=== PATIENT | male | born 2000 | race Caucasian/White ===

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

== ENCOUNTER 2020-03-11 07:00 | Outpatient (CLI) | payer OTHER, MEDICAID | END 2020-03-11 23:59 | disposition home or self-care (01) | LOC: LAB.R 07:00 | DX: R63.4 Abnormal weight loss (principal); K92.1 Melena; K59.00 Constipation, unspecified; K50.90 Crohn's disease, unspecified, without complications | CPT/HCPCS: 83993; 87493 ==

== ENCOUNTER 2020-03-11 20:26 | Outpatient (CLI) | payer OTHER, MEDICAID | END 2020-03-11 20:27 | disposition home or self-care (01) | LOC: LAB 20:26 | PROVIDERS: ATTEND Internal Medicine Gastroenterology | DX: R63.4 Abnormal weight loss (principal); K92.1 Melena; K59.00 Constipation, unspecified; K50.90 Crohn's disease, unspecified, without complications ==

== ENCOUNTER 2020-04-04 08:00 | Outpatient (CLI) | payer OTHER, MEDICAID ==
[2020-04-04 13:16] LABS: GLUCOSE, URINE (UA) NEGATIVE (NEGATIVE); KETONES,URINE (UA) 15 mg/dL (NEGATIVE); LEUKOCYTE ESTERASE, URINE NEGATIVE (NEGATIVE); NITRITE,URINE NEGATIVE (NEGATIVE); OCCULT BLOOD,URINE NEGATIVE (NEGATIVE); PROTEIN,URINE NEGATIVE (NEGATIVE); UROBILINOGEN,URINE 0.2 (NORMAL) E.U./dL (NORMAL)
[2020-04-04 13:17] LABS: CLARITY,URINE CLEAR (CLEAR)
[2020-04-04 13:21] LABS: BILIRUBIN,URINE NEGATIVE (NEGATIVE); ICTOTEST,URINE NEGATIVE
== END 2020-04-04 23:59 | disposition home or self-care (01) ==
LOC: LAB.R 08:00
PROVIDERS: ATTEND Internal Medicine Gastroenterology
DX: R63.4 Abnormal weight loss (principal); K92.1 Melena; K59.00 Constipation, unspecified; K50.90 Crohn's disease, unspecified, without complications; F84.0 Autistic disorder
CPT/HCPCS: 81001; 81003

== ENCOUNTER 2021-02-06 12:05 | Emergency (ER) | payer OTHER, MEDICAID ==
[2021-02-06 12:20] VITALS: BP 132/74
[2021-02-06] MEDS ORDERED: MIDAZOLAM 2 MG/2 ML VIAL IM STA (12:34)
--- NOTE | 2021-02-06 12:35 | ED Physician Documentation ---
History of Present Illness - Stated complaint Stated Complaint: G TUBE COMPLICATION - Chief complaint Chief Complaint: General - History obtained from History obtained from: Family (mom) - Additonal information Additional information: 21-year-old gentleman with autism who requires a G-tube, has been in for a few months but he pulled it out today. Review of Systems Unable to obtain: Other (minimally verbal) PD PAST MEDICAL HISTORY - Past Medical History Cardiovascular: None Respiratory: None Endocrine/Autoimmune: None GI: Crohn's disease : None Psych: Obsessive compulsive disorder, Other Musculoskeletal: None Derm: None - Past Surgical History Past Surgical History: No - Present Medications Home Medications: Ambulatory Orders Medication Instructions Recorded Confirmed Mercaptopurine 50 mg PO DAILY 08/30/14 07/05/17 Citalopram Hydrobromide 40 mg PO DAILY 07/05/17 07/05/17 [Citalopram HBr] Docusate Sodium [Dss] 250 mg PO DAILY #30 capsule 07/05/17 HYDROcod/ACETAM 5/325 [[place] 5/325] 1 tab PO Q6H PRN #15 tablet 07/05/17 Naproxen 375 mg PO BID #20 tablet 07/05/17 Hydrocodone/Acetaminophen [[place] 1 each PO Q6H PRN #15 tablet 04/29/19 5-325 Tablet] Naproxen 500 mg PO BID #15 tablet 04/29/19 Ondansetron Odt [Zofran] 4 mg TL Q6H PRN #10 tablet 04/29/19 - Allergies Allergies/Adverse Reactions: Allergies Allergy/AdvReac Type Severity Reaction Status Date / Time No Known Drug Allergies Allergy Verified 02/06/21 12:19 - Social History Does the pt smoke?: No Smoking Status: Never smoker Does the pt drink ETOH?: No Does the pt have substance abuse?: No - Immunizations Immunizations are current?: Yes - POLST Patient has POLST: No PD ED PE NORMAL - Vitals Vital signs reviewed: Yes - General General: No acute distress, Well developed/nourished, Other (Nonverbal, generally cooperative though) - Neck Neck: Supple, no meningeal sign, No bony TTP - Cardiac Cardiac: RRR, No murmur - Respiratory Respiratory: No respiratory distress, Clear bilaterally - Abdomen Abdomen: Soft, Non tender, Other (G-tube side LUQ) - Back Back: No CVA TTP, No spinal TTP - Derm Derm: Normal color, Warm and dry - Extremities Extremities: No deformity, No tenderness to palpate, Normal ROM s pain Results - Vitals Vitals: Vital Signs - 24 hr 02/06/21 12:12 Temperature 37 C Heart Rate 83 Respiratory 15 Rate Blood Pressure 132/74 H O2 Saturation 99 Oxygen O2 Source Room air PD MEDICAL DECISION MAKING - ED course ED course: 21-year-old autistic gentleman who does not take anything by mouth has pulled out his G-tube. Mom had a replacement, the one in place was a 16 Nigerian and hers was a 14 Nigerian. We do not have anything near the size plus their model is a very low profile on to prevent dislodgment. He was given some anxiolysis with 2 mg of Versed IM and then we tried to replace the G-tube with the 14 [place] model that mom had with them but there was a lot of resistance and it felt like the port was already closed. Offered to try again with more sedation or have our surgeon see him but since we do not have the correct model [facility] and he was [facility] there by Dr. William Mcgrath at 1:20 PM. Departure - Departure Disposition: 02 Transfer Acute Care Hosp Clinical Impression: Gastrojejunostomy tube dislodgement Condition: Stable Discharge Date/Time: 02/06/21 13:35
--- OUTSIDE RECORDS SUMMARY | 2021-02-10 02:31 | EXTERNAL MEDICAL SUMMARY RPT | Continuity of Care Document ---
:2000 Demographics Phone Unavailable Preferred Language Unknown Marital Status Unknown Muslim Affiliation Unknown Race Unknown Ethnic Group Unknown Author Organization [facility] Address [address] [id number] Phone Problems date description facility [id number] [facility] out, see prearrival, no missed meds [facility] per mom Social History date description facility [id number]
== END 2021-02-06 13:35 | disposition short-term general hospital (02) ==
LOC: ED 12:05
DX: K94.23 Gastrostomy malfunction (principal); Y83.3 Surgical operation with formation of external stoma as the cause of abnormal reaction of the patient, or of later complication, without mention of misadventure at the time of the procedure; F84.0 Autistic disorder
CPT/HCPCS: 96372; 99281; 99285